=== PATIENT | female | born 1965 | race African-American/Black ===

== ENCOUNTER 2024-06-08 11:37 | Outpatient (CLI) | payer OTHER | END 2024-06-08 11:38 | disposition home or self-care (01) | LOC: CSHRAD 11:37 | PROVIDERS: ATTEND Family Medicine | DX: M46.1 Sacroiliitis, not elsewhere classified (principal); M47.816 Spondylosis without myelopathy or radiculopathy, lumbar region | CPT/HCPCS: 72100 ==